=== PATIENT | female | born 1935 | race Caucasian/White ===

== ENCOUNTER → 2018-12-29 10:56 | Outpatient (CLI) | payer MEDICARE, SELFPAY ==
--- NOTE | 2018-12-29 | DI.MG.S_ITS ---
BILATERAL DIGITAL SCREENING MAMMOGRAM 3D/2D WITH CAD: 12/29/2018 CLINICAL: Routine screening. Family history of breast cancer. Comparison is made to exams dated: 04/27/2014 mammogram, 03/23/2016 mammogram, and 10/29/2012 mammogram - [facility]. The tissue of both breasts is extremely dense, which lowers the sensitivity of mammography. Current study was also evaluated with a Computer Aided Detection (CAD) system. There are benign post operative findings in the right breast. There also are benign calcifications in both breasts. No significant masses, calcifications, or other findings are seen in either breast. There has been no significant interval change. IMPRESSION: There is no mammographic evidence of malignancy. A 1 year screening mammogram is recommended. This exam was interpreted at Station ID: [id number]. NOTE: For mammograms, a report in lay terms will be sent to the patient. Approximately 15% of breast malignancies will not be visualized mammographically. In the management of a palpable breast mass, a negative mammogram must not discourage biopsy of a clinically suspicious lesion. Electronically Signed By: Andrew trinh/sheri:12/29/2018 11:54:49 copy to: True Quesada letter sent: Normal Exam ACR BI-RADS Category 2: Benign Finding(s) 3342F
--- NOTE | 2018-12-29 | DI.CT.S_ITS ---
PROCEDURE: CT LUMBAR SPINE WO CON INDICATIONS: LOW BACK PAIN TECHNIQUE: Noncontrast 3 mm thick sections acquired from the T12 level to the sacrum. Sagittal and coronal reformats were constructed. For radiation dose reduction, the following was used: automated exposure control. COMPARISON: [facility], CR, L-SPINE MINIMUM 4 VIEWS, 01/06/2013, 15:36. [facility], CT, ABDOMEN/PELVIS WITH CONTRAST, 04/25/2016, 9:16. [facility], CR, L-SPINE 2-3 VIEWS, 12/25/2012, 11:00. FINDINGS: Image quality: Excellent. Bones: No acute vertebral body compression fractures. No suspicious lytic or blastic bony lesions. Central spinal caliber is of normal overall caliber. Mild levoconvex scoliotic curvature is noted. Grade 1 anterolisthesis is seen at the L5 level. Associated pars defects are not seen. T12-L1: Normal. L1-L2: Normal. L2-L3: Mild loss of disc height is seen. Mild to moderate disc bulge is seen. There is likely mild bilateral neural foraminal narrowing seen. Mild central canal narrowing is seen. L3-L4: The disc height is relatively well-preserved. Moderate generalized disc bulge is seen. Moderate bilateral neural foraminal narrowing is seen. Moderate central canal narrowing is seen. L4-L5: Mild to moderate loss of disc height is seen. Moderate disc bulge is seen, which is eccentric to the right. Prominent facet hypertrophy is seen. There is moderate bilateral neural foraminal narrowing seen, right worse than left. Moderate to severe central canal narrowing is seen, as on series 3 image 58. L5-S1: There is at least moderate loss of disc height seen on the left side. Vacuum disc phenomenon is seen at this level. Endplate irregularity and sclerosis can be seen. Moderate facet joint hypertrophy is seen. There is moderate bilateral neural foraminal narrowing seen, left worse than right. Moderate central canal narrowing is seen. Soft tissues: No retroperitoneal masses or hematomas. Visualized aorta is normal in caliber. Atherosclerotic calcification is noted. A small hiatal hernia is incidentally noted. Cholecystectomy clips are seen. 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 Dictated by: Tom Magana M.D. on 12/29/2018 at 12:16 Approved by: Tom Magana M.D. on 12/29/2018 at 12:20
== END ==
PROVIDERS: Family Provider Family Medicine; PCP Family Medicine; Visit Provider Family Medicine
DX: Z12.31 Encounter for screening mammogram for malignant neoplasm of breast (principal); Z80.3 Family history of malignant neoplasm of breast; M54.5 Low back pain; M47.816 Spondylosis without myelopathy or radiculopathy, lumbar region; M47.817 Spondylosis without myelopathy or radiculopathy, lumbosacral region; K44.9 Diaphragmatic hernia without obstruction or gangrene; Z90.49 Acquired absence of other specified parts of digestive tract
CPT/HCPCS: 72131; 77063; 77067